=== PATIENT | male | born 1980 | race Caucasian/White ===

== ENCOUNTER 2021-08-26 23:14 | Emergency (ER) | payer MEDICAID ==
[~2021-08-26] VITALS: Ht 182.9 cm; Wt 88.6 kg
[2021-08-26] MEDS: LORazepam 2 MG TABLET PO ONE (23:48)
[2021-08-26] MEDS: DiphenhydrAMINE HCL 50 MG CAPSULE PO ONE (23:48)
[2021-08-26] MEDS: HALOPERIDOL 5 MG TABLET PO ONE (23:48)
[2021-08-26 23:49] LABS: COVID AG,FIA SOURCE NASOPHARYNGEAL
[2021-08-26 23:54] LABS: BASOPHILS % (AUTO) 0.5 % (0.0-2.0); EOSINOPHILS % (AUTO) 0.2 % (1.0-6.0); HEMATOCRIT 46.3 % (41-53); HEMOGLOBIN 16.2 g/dL (13.5-17.5); LYMPHOCYTES # (AUTO) 1.7 K/uL (1.0-4.8); LYMPHOCYTES % (AUTO) 12.5 % (22.0-44.0); MEAN CORPUSCULAR HEMOGLOBIN 30.8 pg (26.0-34.0); MEAN CORPUSCULAR HGB CONC 34.9 G/dL (31.0-37.0); MEAN CORPUSCULAR VOLUME 88 fL (80-100); MONOCYTES # (AUTO) 1.3 K/uL (0.1-1.0); MONOCYTES % (AUTO) 9.4 % (2.0-9.0); NEUTROPHILS # (AUTO) 10.5 K/uL (1.8-7.7); NEUTROPHILS % (AUTO) 77.4 % (40.0-70.0); PLATELET COUNT (AUTO) 213 K/uL (150-450); RED BLOOD CELL COUNT(AUTO) 5.25 MIL/uL (4.50-5.90); RED CELL DISTRIBUTION WIDTH 13.7 % (11.5-14.5)
[2021-08-27 00:06] LABS: ANION GAP 14 mmol/L (8-16); CALCIUM, TOTAL 9.7 mg/dL (8.8-10.5); CARBON DIOXIDE 22 mmol/L (22-29); CHLORIDE 106 mmol/L (98-107); CREATININE 1.48 mg/dL (0.60-1.30); GLUCOSE,RANDOM 154 mg/dL (70-110); POTASSIUM 3.1 mmol/L (3.5-5.1); SODIUM SERUM 142 mmol/L (136-145); UREA NITROGEN, BLOOD 22 mg/dL (7-18)
[2021-08-27 00:08] LABS: GLOMERULAR FILTR. RATE CALC 53 mL/min (>60)
[2021-08-27 00:12] LABS: ALANINE AMINOTRANSFERASE 68 U/L (12-78); ALKALINE PHOSPHATASE 85 U/L (46-116); ASPARTATE AMINOTRANSFERASE 142 U/L (15-37); BILIRUBIN,TOTAL 3.5 mg/dL (0.1-1.0); TOTAL PROTEIN, SERUM 8.2 g/dL (6.4-8.2)
[2021-08-27] MEDS: POTASSIUM CHLORIDE 20 MEQ ER TABLET PO ONE (01:51)
[2021-08-27 03:40] LABS: AMPHET/METH SCREEN,URINE POSITIVE (NEGATIVE); BARBITURATE SCREEN, URINE NEGATIVE (NEGATIVE); BENZODIAZEPINES SCREEN,URINE NEGATIVE (NEGATIVE); CANNABINOID SCREEN,URINE NEGATIVE (NEGATIVE); COCAINE SCREEN,URINE NEGATIVE (NEGATIVE); METHADONE SCREEN, URINE NEGATIVE (NEGATIVE); OPIATE SCREEN,URINE NEGATIVE (NEGATIVE)
[2021-08-27 03:41] LABS: PHENCYCLIDINE SCREEN,URINE NEGATIVE (NEGATIVE)
[2021-08-27 08:01] VITALS: BP 130/68
== END 2021-08-27 09:28 | disposition home or self-care (01) ==
LOC: EMS 23:14
DX: F15.10 Other stimulant abuse, uncomplicated (principal); R45.851 Suicidal ideations; Z20.822 Contact with and (suspected) exposure to COVID-19
CPT/HCPCS: 99285; 87426; 80053; 82140; 85025; 36415; 80307; G0480

== ENCOUNTER 2022-06-03 17:56 | Emergency (ER) | payer MEDICAID ==
[~2022-06-03] VITALS: Ht 182.9 cm; Wt 100.0 kg
[2022-06-03] MEDS ORDERED: TEST75GE10 MISC (18:28)
[2022-06-03] MEDS ORDERED: ATOR10TA69 PO (18:28)
[2022-06-03] MEDS ORDERED: TESTOSTERONE MISC (18:28)
[2022-06-03] MEDS ORDERED: CIPROFLOXACIN HCL 250 MG TABLET PO ONE (20:30)
[2022-06-03] MEDS ORDERED: PERTUSS(ACELL),DIPH,TET VAC/PF 0.5 ML SYRINGE IM. ONE (20:30)
[2022-06-03] MEDS ORDERED: ACETAMINOPHEN 500 MG TABLET PO ONE (20:30)
[2022-06-03] MEDS ORDERED: DOXYCYCLINE HYCLATE 100 MG TABLET PO ONE (20:30)
[2022-06-03] MEDS ORDERED: BACITRACIN 0.9 GM PACKET OINTMENT TP ONE (20:30)
[2022-06-03] MEDS ORDERED: CIPR250T6 PO (20:34)
[2022-06-03] MEDS ORDERED: DOXY-354 PO (20:34)
[2022-06-03] MEDS ORDERED: SERT-162 PO (20:39)
[2022-06-03] MEDS ORDERED: TEST200V21 IM (20:39)
[2022-06-03 21:26] VITALS: BP 128/64
== END 2022-06-03 21:29 | disposition home or self-care (01) ==
LOC: EMS 17:57
DX: S91.331A Puncture wound without foreign body, right foot, initial encounter (principal); F15.90 Other stimulant use, unspecified, uncomplicated; Z98.890 Other specified postprocedural states; W22.8XXA Striking against or struck by other objects, initial encounter; Y93.89 Activity, other specified; Y92.89 Other specified places as the place of occurrence of the external cause; Y99.8 Other external cause status
CPT/HCPCS: 90471; 90715; 99284

== ENCOUNTER 2022-07-20 11:59 | Emergency (ER) | payer MEDICAID ==
[~2022-07-20] VITALS: Ht 180.3 cm; Wt 97.7 kg
[~2022-07-20 11:59] MED LIST: ATOR10TA69 PO; CIPR250T6 PO; DOXY-354 PO; SERT-162 PO; TEST200V21 IM
[2022-07-20 12:35] LABS: APPEARANCE,URINE CLEAR (CLEAR); BILIRUBIN,URINE NEGATIVE (NEGATIVE); GLUCOSE, URINE (UA) NEGATIVE (NEGATIVE); KETONES,URINE NEGATIVE (NEGATIVE); LEUKOCYTE ESTERASE ,URINE LARGE (NEGATIVE); NITRATE,URINE NEGATIVE (NEGATIVE); OCCULT BLOOD,URINE MODERATE (NEGATIVE); PH,URINE 5.5 (5.0-8.0); PROTEIN,URINE TRACE mg/dL (NEGATIVE); SPECIFIC GRAVITIY, URINE 1.026 (1.003-1.030); UROBILINOGEN,URINE <=1.0 mg/dL (<=1.0)
[2022-07-20 12:44] LABS: BACTERIA,URINE Few /HPF (None Seen); SQUAMOUS EPITHELIAL CELL,UR Few /LPF (None Seen); WBC,URINE 26-50 /HPF (0-5)
[2022-07-20] MEDS ORDERED: CefTRIAXone 1 GM/DEXTROSE 50 ML IV ONE (13:15)
[2022-07-20] MEDS ORDERED: SODIUM CHLORIDE 0.9% 1,000 ML IV ONE (13:15)
[2022-07-20 13:29] LABS: BASOPHILS % (AUTO) 0.6 % (0.0-2.0); EOSINOPHILS % (AUTO) 2.1 % (1.0-6.0); LYMPHOCYTES # (AUTO) 2.2 K/uL (1.0-4.8); LYMPHOCYTES % (AUTO) 18.5 % (22.0-44.0); MEAN CORPUSCULAR HEMOGLOBIN 31.3 pg (26.0-34.0); MEAN CORPUSCULAR HGB CONC 34.7 G/dL (31.0-37.0); MEAN CORPUSCULAR VOLUME 90 fL (80-100); MONOCYTES # (AUTO) 0.9 K/uL (0.1-1.0); MONOCYTES % (AUTO) 7.4 % (2.0-9.0); NEUTROPHILS # (AUTO) 8.4 K/uL (1.8-7.7); NEUTROPHILS % (AUTO) 71.4 % (40.0-70.0); PLATELET COUNT (AUTO) 217 K/uL (150-450); RED BLOOD CELL COUNT(AUTO) 6.31 MIL/uL (4.50-5.90); RED CELL DISTRIBUTION WIDTH 13.1 % (11.5-14.5)
[2022-07-20 13:33] LABS: HEMATOCRIT 56.8 % (41-53); HEMOGLOBIN 19.7 g/dL (13.5-17.5)
[2022-07-20 13:54] LABS: ANION GAP 11 mmol/L (8-16); CALCIUM, TOTAL 8.8 mg/dL (8.8-10.5); CARBON DIOXIDE 24 mmol/L (22-29); CHLORIDE 108 mmol/L (98-107); CREATININE 1.26 mg/dL (0.60-1.30); GLOMERULAR FILTR. RATE CALC > 60 mL/min (>60); GLUCOSE,RANDOM 99 mg/dL (70-110); SODIUM SERUM 143 mmol/L (136-145)
[2022-07-20 14:00] LABS: ALANINE AMINOTRANSFERASE 51 U/L (12-78); ALBUMIN 3.8 g/dL (3.4-5.0); ALKALINE PHOSPHATASE 102 U/L (46-116); ASPARTATE AMINOTRANSFERASE 42 U/L (15-37); BILIRUBIN,TOTAL 0.9 mg/dL (0.1-1.0); TOTAL PROTEIN, SERUM 6.5 g/dL (6.4-8.2)
[2022-07-20 14:30] VITALS: BP 136/72
[2022-07-20] MEDS ORDERED: CEPH-558 PO (16:04)
== END 2022-07-20 16:47 | disposition home or self-care (01) ==
LOC: EMS 11:59
DX: N39.0 Urinary tract infection, site not specified (principal); F15.90 Other stimulant use, unspecified, uncomplicated; M54.9 Dorsalgia, unspecified; Z98.890 Other specified postprocedural states
CPT/HCPCS: 99285; 74176; 96365; 80053; 81001; 85025; 36415; 87086; 87186; J0696; J7030